=== PATIENT | male | born 1975 | race African-American/Black ===

== ENCOUNTER 2019-02-02 20:43 | Emergency (ER) | payer SELFPAY ==
[2019-02-03] MEDS ORDERED: METRONIDAZOLE 500 MG TABLET PO ONE (00:02)
--- NOTE | 2019-02-03 00:05 | ER Document Report ---
ED General - General Chief Complaint: STD Exposure Stated Complaint: URINARY ISSUE Time Seen by Provider: 02/02/19 23:53 Notes: Patient is a 43-year-old male who presents with his girlfriend because of concern for trichomonas. His girlfriend was recently treated for trichomonas and therefore he is here to be tested and treated as well. Denies any abnormal discharge. No burning with urination. No symptoms whatsoever. No fevers. TRAVEL OUTSIDE OF THE [place] IN LAST 30 DAYS: No - Related Data Allergies/Adverse Reactions: No Known Drug Allergies Allergy (Verified 02/02/19 21:01) Past Medical History - Social History Smoking Status: Never Smoker Frequency of alcohol use: None Drug Abuse: None Family History: Reviewed & Not Pertinent Review of Systems - Review of Systems Notes: My Normal Review Basic REVIEW OF SYSTEMS: CONSTITUTIONAL : Denies fever, chills, or sweats. Denies recent illness. GASTROINTESTINAL: Denies abdominal pain. GENITOURINARY: Denies difficulty urinating, painful urination, burning, frequency, or blood in urine. Genital: No abnormal discharge from penis. SKIN: Denies rash or skin lesions. ALL OTHER SYSTEMS REVIEWED AND NEGATIVE. Physical Exam - Vital signs Vitals: Temp Pulse Resp BP Pulse Ox 97.4 F 85 15 142/75 H 100 02/02/19 21:04 02/02/19 21:04 02/02/19 21:04 02/02/19 21:04 02/02/19 21:04 - Notes Notes: General Appearance: Well nourished, alert, cooperative, no acute distress, no obvious discomfort. Vitals: reviewed, See vital signs table. Abdomen: Normal BS, soft, No rigidity, No abdominal tenderness, No guarding, no rebound Genital: Normal external genitalia without any discharge or rash. Neuro: speech clear, oriented x 3, normal affect, responds appropriately to questions. Course - Re-evaluation Re-evalutation: 02/03/19 00:04 Patient's been exposed to trichomonas therefore I will treat him. I informed him and his sexual partner not to have sex for at least a week. Urine was sent for gonorrhea chlamydia. This testing is take several hours to come back and therefore I did take down the phone number ([phone]) to call them if the testing was positive. Currently is completely asymptomatic and looks well. I do not feel he needs any other further testing at this time. Patient encouraged to return to ER if he has abnormal discharge from his penis, or pain. Patient agrees with plan will be discharged home. Dictation of this chart was performed using voice recognition software; therefore, there may be some unintended grammatical errors. 02/04/19 04:13 I did attempt to call them to make them aware that the gonorrhea chlamydia testing was negative. The phone rang several times. It then left me a message saying that the patient's voicemail has not yet been set up. Dictation of this chart was performed using voice recognition software; therefore, there may be some unintended grammatical errors. - Vital Signs Vital signs: Temp Pulse Resp BP Pulse Ox 97.6 F 72 16 113/71 99 02/03/19 00:37 02/03/19 00:37 02/03/19 00:37 02/03/19 00:37 02/03/19 00:37 - Laboratory Laboratory results interpreted by me: 02/02/19 23:50 Urine Urobilinogen 4.0 H Discharge - Discharge Clinical Impression: Trichomonas exposure Condition: Good Disposition: HOME, SELF-CARE Additional Instructions: We will cover you with an antibiotic for trichomonas being your sexual partner also has trichomonas. Please take the antibiotic as prescribed. No sexual activity for at least a week. If your urine shows evidence of any other infecti on I will call you and let you know and call in the antibiotic that you need for it. Please return to the ER immediately if you have fevers, pain or burning with urination, abnormal discharge from the penis, or have any further concerns. Prescriptions: Metronidazole [Flagyl 500 mg Tablet] 500 mg PO BID #14 tablet
[2019-02-03 00:09] LABS: APPEARANCE,URINE SLIGHTLY-CLOUDY; BILIRUBIN,URINE NEGATIVE (NEGATIVE); COLOR,URINE YELLOW; GLUCOSE, URINE NEGATIVE (NEGATIVE); KETONES,URINE NEGATIVE (NEGATIVE); LEUKOCYTE ESTERASE,URINE NEGATIVE (NEGATIVE); NITRITE,URINE NEGATIVE (NEGATIVE); PROTEIN,URINE NEGATIVE (NEGATIVE); URINE SPECIFIC GRAVITY 1.028
[2019-02-03 00:43] VITALS: BP 113/71
[2019-02-03 01:32] LABS: CHLAM PCR NOT DETECTED (NOT DETECT); GON PCR NOT DETECTED (NOT DETECT)
== END 2019-02-03 00:39 | disposition home or self-care (01) ==
LOC: ER 20:43
DX: Z20.2 Contact with and (suspected) exposure to infections with a predominantly sexual mode of transmission (principal)
CPT/HCPCS: 81001; 87491; 87591; 99283

== ENCOUNTER 2019-11-27 17:32 | Emergency (ER) | payer SELFPAY ==
--- NOTE | 2019-11-27 17:52 | ER Document Report ---
HPI - HPI Time Seen by Provider: 11/27/19 17:46 Pain Level: 3 Notes: Patient is a 44-year-old male with no significant past medical history who presents complaining of bilateral lower back pain status post injury about a week ago. Patient states he was lifting something up and was twisting when he felt the pain. Pain does not radiate. Patient states that the pain does feel like a cramping pain in his back. He is able to eat and drink without difficulty. He is urinating normally and having normal bowel movements. Bending and twisting does make the pain worse. No history of diabetes, spinal abscess, IV drug abuse. Denies any headache, fever, neck pain, URI, sore throat, chest pain, palpitations, syncope, cough, shortness of breath, wheeze, dyspnea, abdominal pain, nausea/vomiting/diarrhea, urinary retention, dysuria, hematuria, loss of control of bowel or bladder, numbness/tingling, saddle anesthesia, muscle paralysis/weakness, or rash. - ROS Systems Reviewed and Negative: Yes All other systems reviewed and negative - REPRODUCTIVE Reproductive: DENIES: : Past Medical History - Social History Smoking Status: Never Smoker Chew tobacco use (# tins/day): No Frequency of alcohol use: None Drug Abuse: None Family History: Reviewed & Not Pertinent Patient has suicidal ideation: No Patient has homicidal ideation: No Renal/ Medical History: Denies: Hx Peritoneal Dialysis Vertical Provider Document - CONSTITUTIONAL Agree With Documented VS: Yes Notes: PHYSICAL EXAMINATION: GENERAL: Well-appearing, well-nourished and in no acute distress. LUNGS: Breath sounds clear to auscultation bilaterally and equal. No wheezes rales or rhonchi. HEART: Regular rate and rhythm without murmurs, rubs, gallops. ABDOMEN: Soft, nontender, nondistended abdomen. No guarding, no rebound. Normal bowel sounds present. No CVA tenderness bilaterally. No pulsatile mass Musculoskeletal: LE's b/l: FROM to passive/active. Strength 5+/5. No deficits noted. No bony tenderness of extremities. Back: FROM to passive/active. Strength 5+/5. No vertebral point tenderness, stepoffs, or deformities. No other bony tenderness, erythema, swelling, or ecchymosis. SLR negative b/l. + Reproducible tenderness to the L-paraspinal mm b/l. Mild spasming. No SI jt tenderness. No foot drop Extremities: No cyanosis, clubbing, or edema b/l. Peripheral pulses 2+. Capillary refill less than 2 seconds. NEUROLOGICAL: Normal speech, antalgic gait. Normal sensory, motor exams. Reflexes 2+ b/l. PSYCH: Normal mood, normal affect. SKIN: Warm, Dry, normal turgor, no rashes or lesions noted. - INFECTION CONTROL TRAVEL OUTSIDE OF THE [place] IN LAST 30 DAYS: No Course - Re-evaluation Re-evalutation: 11/27/19 Patient is an afebrile, well-hydrated, 44-year-old male who presents to the ED with acute low back pain, suspect strain with spasming. Vitals are acceptable. PE is otherwise unremarkable for any focal neurological deficits. Patient was given Toradol. He has no significant tachycardia, tachypnea, or hypoxia. He is nontoxic-appearing and is tolerating p.o. without difficulties. There are no signs of infection. No other red flag symptoms noted. No other labs or imaging warranted at this time based on H&P. Low suspicion for any meningitis, fracture, expanding/ruptured AAA, cauda equina syndrome, epidural mass lesion/abscess, herniated disc causing severe spinal stenosis, or other systemic infection at this time. Patient is aware that his condition can change from initial presentation and that he needs monitor symptoms closely for any acute changes. I will send him home with a prescription for Robaxin and Motrin. Conservative measures otherwise for symptoms. Recheck with your PCM in 3-5 days. Consider consult with orthopedic/physical therapy. Return to the ED with any worsening/concerning symptoms otherwise as reviewed discharge. Patient is in agreement. - Vital Signs Vital signs: Temp Pulse Resp BP Pulse Ox 98.2 F 75 16 108/85 100 11/27/19 17:41 11/27/19 17:41 11/27/19 17:41 11/27/19 17:41 11/27/19 17:41 Discharge - Discharge Clinical Impression: Acute low back pain Qualifiers: Back pain laterality: bilateral Sciatica presence: without sciatica Qualified Code(s): M54.5 - Low back pain Condition: Stable Disposition: HOME, SELF-CARE Instructions: Low Back Pain ([facility]), Muscle Relaxers ([facility]) Additional Instructions: Rest, Ice Tylenol/ibuprofen as needed Light stretches daily Strength exercises as able Moist heat and massage may help F/u with your PCP in 3-5 days for a recheck Consider consult(s) with Orthopedics/physical therapy for ongoing/worsening symptoms Return to the ED with any worsening symptoms and/or development of fever, headache, chest pain, palpitations, syncope, shortness of breath, trouble breathing, abdominal pain, n/v/d, blood in stool/urine, loss of control of bowel/bladder, urinary retention, muscle weakness/paralysis, saddle anesthesia, numbness/tingling, or other worsening symptoms that are concerning to you. Prescriptions: Lidocaine [Lidoderm 5% (700 mg) Transdermal Patch] 1 patch TP DAILY #10 adh..patch Ibuprofen [Motrin 800 mg Tablet] 800 mg PO Q8H PRN #15 tab PRN Reason: Methocarbamol [Robaxin 750 mg Tablet] 750 mg PO TID PRN #10 tablet PRN Reason: Forms: Return to Work Referrals: [facility] [Provider Group] - Follow up as needed
[2019-11-27] MEDS ORDERED: KETOROLAC TROMETHAMINE 60 MG/2 ML SDV IM ONE (17:53)
[2019-11-27 19:07] VITALS: BP 110/68
== END 2019-11-27 19:05 | disposition home or self-care (01) ==
LOC: ER 17:32
DX: M54.5 Low back pain (principal); X50.9XXA Other and unspecified overexertion or strenuous movements or postures, initial encounter
CPT/HCPCS: 99283; J1885